=== PATIENT | female | born 1945 | race Caucasian/White ===

== ENCOUNTER → 2018-09-30 12:16 | Outpatient (CLI) | payer MEDICARE, OTHER, SELFPAY ==
--- NOTE | 2018-09-30 12:43 | CT_ITS ---
STUDY: CT ABDOMEN AND PELVIS WITH CONTRAST REASON FOR EXAM: Female, 73 years old. Abdominal pain and swelling RADIATION DOSAGE (If Supplied By Facility): CTDIvol = ( 17.63 ) mGy, DLP = ( 988.98 ) mGycm TECHNIQUE: Transaxial images were obtained from the dome of the diaphragm to the symphysis pubis without oral contrast. 100 IV/Oral Isovue 300 was administered. Sagittal and coronal images were reconstructed. Individualized dose optimization techniques were used for this CT. COMPARISON: None. FINDINGS: There are chronic interstitial fibrotic changes of the lung bases. The visualized portions of the heart are within normal limits. There is decreased attenuation of the liver consistent with steatosis. Gallbladder has an unusual appearance with most inferior aspect showing septations and peripheral calcifications. Recommend further evaluation with ultrasound. There are multiple benign calcified granulomata of the spleen. Normal pancreas. Normal bilateral adrenal glands. Normal right kidney. Normal left kidney. Normal visualized stomach. Normal small intestine. Retained stool noted throughout the colon. The appendix is visualized and appears normal. Appendix best seen on coronal recon image 70 There is diffuse atherosclerotic calcification of the abdominal aorta, without a demonstrated aneurysm. Normal inferior vena cava. Normal retroperitoneum. Normal urinary bladder. Uterus is still present, the endometrium cannot be accurately evaluated with CT. No suspicious cystic mass or free fluid. There are at least 4 ventral hernias, 3 contain bowel loops. However, there is no bowel wall thickening or induration of the associated fat to suggest inflammation or incarceration. There are diffuse degenerative changes of the visualized lumbar spine, and pelvis. Old healed inferior pubic rami fractures noted. CT/Abdomen/Pelvis WITH Contrast IMPRESSION: There are 4 ventral hernias, 3 contain bowel loops. There is no CT evidence of acute inflammation or bowel wall thickening to suspect incarceration. No associated ileus or obstruction noted. The distal gallbladder shows septations and peripheral calcifications. I'm unsure if the calcifications are within the wall of the gallbladder or due to gallstones. Recommend further evaluation with ultrasound. No pericholecystic fluid or ductal dilatation noted. Fatty liver Uterus is still present, the endometrium cannot be adequately evaluated with CT. Degenerative bony changes with old healed inferior pubic rami fractures Electronically Signed: Brock Miranda MD at 15:44 EDT , Service support ,
[2018-09-30 13:00] LABS: Creatinine, Serum 1.04 mg/dL (0.55-1.02); EST Glomerular Filtration Rate 55 mL/min (>60); Est Glom Filt Rate - Afr Amer 66 mL/min (>60)
[2018-09-30 15:25] LABS: CREATININE FINGERSTICK 0.9 mg/dL (0.55-1.02)
== END ==
PROVIDERS: Family Provider Student in an Organized Health Care Education/Training Program; PCP Student in an Organized Health Care Education/Training Program; Referring Provider Student in an Organized Health Care Education/Training Program; Visit Provider Student in an Organized Health Care Education/Training Program
DX: R19.00 Intra-abdominal and pelvic swelling, mass and lump, unspecified site (principal)
CPT/HCPCS: 36415; 74177; 82565; Q9967

== ENCOUNTER → 2018-10-30 08:00 | Outpatient (CLI) | payer MEDICARE, OTHER, SELFPAY ==
[2018-10-30 15:46] LABS: Hematocrit 41.3 % (37-47); Hemoglobin 13.3 g/dL (12.0-15.0); Mean Corp Hgb Conc 32.2 g/dL (32-36); Mean Corpuscular Hgb 29.8 pg (27.0-32.0); Mean Corpuscular Volume 92.6 fL (81-99); Mean Platelet Vol. 12.4 fl (6.2-12.0); Platelet Count 227 K/mm3 (150-450); RBC Distribution Width CV 13.7 % (11.6-14.6); RBC Distribution Width SD 46.4 fl (35.1-43.9); Red Blood Count 4.46 M/mm3 (4.2-5.4); White Blood Count 8.8 K/mm3 (4.4-11.0)
[2018-10-30 16:11] LABS: Anion Gap 3 (5-15); BUN 21 mg/dL (7-18); BUN/Creat Ratio 19.8 RATIO (10-20); Calcium,Total 9.4 mg/dL (8.5-10.1); Chloride 107 mmol/L (98-107); Creatinine, Serum 1.06 mg/dL (0.55-1.02); EST Glomerular Filtration Rate 54 mL/min (>60); Est Glom Filt Rate - Afr Amer 65 mL/min (>60); Glucose 259 mg/dL (74-106); Potassium 3.9 mmol/L (3.5-5.1); Sodium Level 139 mmol/L (136-145)
[2018-10-30 16:16] LABS: Hemoglobin A1c 8.5 % (4.2-6.3)
== END ==
PROVIDERS: Anesthesiology; Family Provider Student in an Organized Health Care Education/Training Program; PCP Student in an Organized Health Care Education/Training Program; Referring Provider Surgery; Visit Provider Surgery
DX: Z01.818 Encounter for other preprocedural examination (principal); K43.2 Incisional hernia without obstruction or gangrene; E11.9 Type 2 diabetes mellitus without complications; I10 Essential (primary) hypertension
CPT/HCPCS: 36415; 80048; 83036; 85027; 93005

== ENCOUNTER 2018-12-24 14:39 | Inpatient (IN) | payer MEDICARE, OTHER, SELFPAY ==
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
[2018-12-23] VITALS (15 sets, daily range): BP systolic 128–171; BP diastolic 7–104; PULSE 64–79; RESP 16–20; TEMP 36.1–36.9; O2SAT 90–98; BMI 27.2
[2018-12-23] MEDS: Lactated Ringers 1,000 ML 100 ML IV ×3 (07:17→21:27)
--- NOTE | 2018-12-23 07:30 | HERN_PTH ---
PATIENT: SHOAIB RAE LOC: MS3 U#:[id number] AGE/SX: 73/F ROOM: MS310 RE12/24/[address]: Dr. Pro Juarez MD : 1945 BED: 1 DIS: 12/25/2018 SPEC #: [id number] RECD: 12/23/18 12:17 STATUS: RADHA REQ #: [id number] SUNIL: 12/23/18 07:[address]: Pro Juarez DEPT: SURGICAL PATHOLOGY RECD BY: Sebastian Yan ENTERED: 12/23/18 13:34 SP TYPE: Hernia OTHR DR: Dr. Nakul Mcclellan, DO Tissues: HERNIA Procedures: Surgery Specimen Level II HEADER OPERATION: Incisional hernia repair PRE-OP DIAGNOSIS: Incisional hernia without obstruction or gangrene TISSUE SUBMITTED: Falciform ligament, hernia sac MICROSCOPIC DIAGNOSIS Falciform ligament, hernia sac, excision: Hernia sac with mild fibrosis. AM:owen 12/24/18 MICROSCOPIC DESCRIPTION Slides are reviewed. GROSS DESCRIPTION Received in fixative is one container labeled with the patient's name and designated falciform ligament, hernia sac. The specimen consists of multiple pieces of yellow adipose tissue that in aggregate measure 9 x 5.5 x 1.5 cm. No mass lesion is identified. Curriculum Manager sections are submitted in two cassettes. / SJ:owen 12/23/18 TC:5 [facility]: [id number]
[2018-12-23] MEDS: 0.9% Normal Saline (Pres. free 10 ML Vial (09:23)
[2018-12-23] MEDS: Bupivacaine 0.25% 30 ML Vial (09:25)
[2018-12-23] MEDS: BUPIVACAINE LIPOSOME/PF 20 ML VIAL OPERA.SITE (09:26)
--- NOTE | 2018-12-23 09:32 | OP.PCM_ITS ---
Report of Operation Date of Procedure: 12/23/18 Pre-Operative Diagnosis: incarcerated incisional hernia Post-Operative Diagnosis: incarcerated small bowel, larger bowel and omentum, extensive adhesions, incarcerated incisional hernia - total defect - 13x7 Surgery/Procedure Performed:: laparoscopic extensive lysis of adhesions, laparoscopic incarcerated incisional hernia repair with 25.[address] Hernia patch - Ref [id number], Lot [id number], exp - 03/08/2020 capital campaign fundraiser: Alison Arredondo Type of Anesthesia:: General Anesthesiologist: Nathan Stallings - ASA3 Specimen's removed: falciform and hernia sac Drains: none Estimated Blood Loss (mL): 100 Fluids Replaced: 900 Description of Procedure: The patient was brought to the operating suite. Sign in was performed verifying patient, site, procedure, position, and DVT prophylaxis with SCDs. Patient received 900 mg clindamycin due to penicillin allergy for antibiotic prophylaxis. Following induction of general anesthetic, the patient?s abdomen was prepped and draped in the usual fashion. Timeout was performed verifying patient, site, position. Local anesthetic was injected . A linear incision was made and dissection carried down at the level of the supraumbilical hernia defect. The hernia sac and the hernia sac was opened . The Grey trocar was inserted and the balloon insufflated.. 3- 5mm ports were placed in the far left lateral position There was very dense intra-abdominal adhesions of small bowel to the anterior abdominal wall. These were very carefully dissected sharply using laparoscopic Metzenbaum scissors. Cold dissection time took approximately 1 hour. As dissection continued and there were noted to be no multiple fascial defects in the midline to the right of midline holding omentum, small bowel and transverse colon adherent within the hernia sac. These items were very carefully dissected off the hernia sac and then dissected off the fascial defect margin . There were multiple adhesions intra-abdominally. . Once there was circumferential freeing of the small bowel and omentum , the hernia sac was dissected completely free from the subcutaneous fat down to the level of the fascial defect . Dissection of the hernia sac at the level the umbilicus and then excess surrounding preperitoneal fat was dissected to allow flat placement of the intra-abdominal mesh. The falciform ligament was also divided to prevent tenting. The hernia sac tissue was excised and sent to pathology. A 15.7 x 25.5 VentrioST mesh was placed intra-abdominally. A Prolene suture was placed through the superior aspect of the mesh brought up with a Granee needle to just the upper midline allowing good overlap between the edge of the mesh and the superior aspect of the defect. Prolene sutures were placed transfixing the fascia at 12 , 6 , 3 and 9:00 using a GraNee needle . The mesh was then tacked using both Pro-Tech and secure strap tackers around the outer rim of the mesh and then in multiple locations in the inner mesh Subcutaneous fat was closed with interrupted 3-0 Vicryl suture. Skin was closed with a running and inturrepted 4-0 Monocryl subcuticular sutures. Steri-Strips and bandages were applied. The patient was brought to recovery room in stable condition. Grafts/Implants Used: 25.[address] Hernia patch - Ref [id number], Lot [id number], exp - 12
[2018-12-23 11:11] LABS: Bedside Glucose 181 mg/dL (70-110)
[2018-12-23] MEDS: hydroCHLOROthiazide 25 MG Tablet PO (15:14)
[2018-12-23] MEDS: metFORMIN HCl 850 MG Tablet PO (17:17)
[2018-12-23] MEDS: oxyCODONE 5 MG Tablet PO (20:19)
[2018-12-23 21:36] LABS: Bedside Glucose 143 mg/dL (70-110)
[2018-12-23] MEDS: Loratadine 10 MG Tablet PO (23:16)
[2018-12-24 00:16] LABS: Bedside Glucose 171 mg/dL (70-110)
[2018-12-24] MEDS: oxyCODONE 5 MG Tablet PO ×6 (01:13→21:59)
[2018-12-24 02:45] VITALS: BP 176/81; PULSE 75; RESP 20; TEMP 37; O2SAT 95
[2018-12-24] MEDS: Insulin Lispro 100 UNIT/ML INSULN.PEN SC ×2 (06:36→12:23)
[2018-12-24 06:45] LABS: Bedside Glucose 163 mg/dL (70-110)
--- NOTE | 2018-12-24 06:56 | NURSING ---
Pulse ox was dropping into the upper 80's. Entered room and found pt sleeping. Awakened her and applied oxygen at 2L via n/c. Pulse ox now reading 93%.
[2018-12-24] MEDS: Lactated Ringers 1,000 ML 70 ML IV ×2 (07:07→21:46)
[2018-12-24 07:29] LABS: Absolute Lymphocyte Count 2.09 X10^3/uL (0.83-4.51); Absolute Neutrophil Count 6.6 X10^3/uL (2.0-7.7); Basophil# 0.06 X10^3/uL; Basophil% 0.6 % (0-1); Eosinophil# 0.14 X10^3/uL; Eosinophils% 1.4 % (0-5); Hematocrit 38.2 % (37-47); Hemoglobin 12.2 g/dL (12.0-15.0); Lymphocyte # 2.09 X10^3/ul (4.0); Lymphocyte % 21.4 % (19-41); Mean Corp Hgb Conc 31.9 g/dL (32-36); Mean Corpuscular Hgb 29.9 pg (27.0-32.0); Mean Corpuscular Volume 93.6 fL (81-99); Mean Platelet Vol. 12.8 fl (6.2-12.0); Monocyte# 0.85 X10^3/uL; Monocyte% 8.7 % (0-10); NRBC Flagged by Analyzer 0 % (0-5); Neutrophil # 6.58 X10^3/uL (2.7-7.7); Neutrophil % 67.4 % (47-70); Platelet Count 198 K/mm3 (150-450); RBC Distribution Width CV 13.8 % (11.6-14.6); RBC Distribution Width SD 46.7 fl (35.1-43.9); Red Blood Count 4.08 M/mm3 (4.2-5.4); White Blood Count 9.8 K/mm3 (4.4-11.0)
[2018-12-24 07:54] LABS: Anion Gap 9 (5-15); BUN 13 mg/dL (7-18); Calcium,Total 8.6 mg/dL (8.5-10.1); Chloride 104 mmol/L (98-107); Creatinine, Serum 0.81 mg/dL (0.55-1.02); EST Glomerular Filtration Rate 73 mL/min (>60); Est Glom Filt Rate - Afr Amer 88 mL/min (>60); Estimated Creatinine Clearance 56.18 ml/min; Glucose 155 mg/dL (74-106); Potassium 3.4 mmol/L (3.5-5.1); Sodium Level 140 mmol/L (136-145)
[2018-12-24 08:44] VITALS: BP 170/79; PULSE 73; RESP 18; TEMP 36.9; O2SAT 98
[2018-12-24] MEDS: Aspirin E.C. 81 MG Tablet PO (08:49)
[2018-12-24] MEDS: metFORMIN HCl 850 MG Tablet PO ×3 (08:49→17:31)
[2018-12-24] MEDS: Glimepiride 4 MG Tablet 2 MG PO (08:49)
[2018-12-24] MEDS: LINAGLIPTIN 5 MG TABLET PO (08:50)
[2018-12-24] MEDS: hydroCHLOROthiazide 25 MG Tablet PO (08:50)
[2018-12-24] MEDS: Allopurinol 300 MG Tablet PO (08:50)
[2018-12-24 08:51] VITALS: BP 170/79; PULSE 73
[2018-12-24] MEDS: Metoprolol(XL)Succ 25 MG Tablet PO (08:51)
[2018-12-24] MEDS: Lisinopril 40 MG Tablet PO (08:51)
[2018-12-24] MEDS: Loratadine 10 MG Tablet PO (08:53)
[2018-12-24 11:31] LABS: Bedside Glucose 160 mg/dL (70-110)
--- NOTE | 2018-12-24 12:46 | NURSING ---
pt resting quietly in chair @ bs, eyes closed, resp easy
[2018-12-24 13:00] VITALS: BP 149/62; PULSE 70; RESP 18; TEMP 36.5; O2SAT 95
--- NOTE | 2018-12-24 14:30 | PCM.PN.SRG ---
Subjective: incisional pain, passed flatus yesterday, hungry - Physical Exam General: Alert, Oriented x3, Cooperative Lungs: Clear to auscultation, Normal air movement Cardiovascular: Regular rate, No murmurs Abdomen: Bowel Sounds Present, Soft, Hypoactive Bowel Sounds, Tender - along incisions Vital Signs Temp Pulse Resp BP Pulse Ox 97.7 F L 70 18 149/62 H 95 12/24/18 13:00 12/24/18 13:00 12/24/18 13:00 12/24/18 13:00 12/24/18 13:00 Oxygen Flow Rate (L/min) 2 Oxygen Delivery Method Room Air Weight: 76.5 kg Body Mass Index (BMI) 27.2 Intake and Output for Last 24 Hours 12/22/18 12/23/18 12/24/18 23:59 23:59 23:59 Intake Total 1922.67 / 2122.67 1607.17 / 1607.17 Output Total 1600 / 1600 Balance 1922.67 / 1922.67 7.17 / 7.17 Laboratory Tests Past 24 Hrs 12/24/18 12/24/18 06:00 06:00 WBC 9.8 RBC 4.08 L Hgb 12.2 Hct 38.2 MCV 93.6 MCH 29.9 MCHC 31.9 L RDW Std Deviation 46.7 H RDW Coeff of Rusty 13.8 Plt Count 198 MPV 12.8 H Immature Gran % (Auto) 0.500 Neut % (Auto) 67.4 Lymph % (Auto) 21.4 [place] % (Auto) 8.7 Eos % (Auto) 1.4 Baso % (Auto) 0.6 Absolute Neuts (auto) 6.6 Absolute Lymphs (auto) 2.09 Nucleated RBC % 0 Sodium 140 Potassium 3.4 L Chloride 104 Carbon Dioxide 27.0 Anion Gap 9 BUN 13 Creatinine 0.81 Estim Creat Clear Calc 56.18 Est GFR (MDRD) Af Amer 88 Est GFR (MDRD) Non-Af 73 BUN/Creatinine Ratio 16.0 Glucose 155 H Calcium 8.6 POC Glucose 12/24/18 12/24/18 12/23/18 11:26 06:33 21:29 POC Glucose 160 H 163 H 143 H 12/23/18 17:16 POC Glucose 171 H Medical Necessity - Tobacco Use Smoking Status: Former smoker Tobacco Use: Non-smoker Assessment/Plan POD # 1 status post laparoscopic lysis of adhesions, laparoscopic multi-pocketed incisional hernia repair with 25 x 15 cm Ventrio mesh. Patient tolerating liquid diet and wishes to advance diet-Will advance to regular diet with cautions to watch for abdominal distention. Encourage patient to get out of bed and ambulate. Also encouraged deep breathing sessions and spirometry use. Patient still having significant incisional pain as expected based on size of hernia repair. We'll continue parenteral pain medications with transition
[2018-12-24 16:25] LABS: Bedside Glucose 139 mg/dL (70-110)
[2018-12-24 19:00] VITALS: BP 148/68; PULSE 72; RESP 18; TEMP 37.3; O2SAT 95
[2018-12-24 22:06] LABS: Bedside Glucose 103 mg/dL (70-110)
[2018-12-25 01:55] VITALS: BP 170/71; PULSE 86; RESP 18; TEMP 36.9; O2SAT 93
[2018-12-25] MEDS: oxyCODONE 5 MG Tablet PO ×3 (02:05→12:09)
--- NOTE | 2018-12-25 06:35 | DCINST_ITS ---
Discharge Diet: Light diet - advance as tolerated Discharge Activity: Return to Normal Activity, May Drive - when you are no longer taking narcotic pain medications., May Shower - with the bandage in place 1-2 days after surgery. Lifting Restrictions: 20 pounds for 8 weeks. Additional Activity Instructions:: Climbing stairs is fine, walking is encouraged. Sitting in bed may be uncomfortable. Sitting up using your lateral muscles (sitting up sideways) is usually more comfortable. Do not drive, work heavy equipment of sign legal documents for 24 hours. If your hernia repair was an ingunial repair, you may have scrotal swelling, an ice pack and/or athletic support can provide more comfort. Pain medications may cause nausea, you should typically eat light foods as you take your pain medications. Pain medications may also cause constipation. If you have difficulty with this, discuss with your doctor. Call your doctor if your incision/area has: Continuous Slow Oozing, Sudden Increased Bleeding, Increased Pain/ Swelling, Increased Redness, Foul Smelling Discharge Call your doctor if you observe: Fever of 101 or Higher Suture Line Care: Avoid Pulling/Pushing, Avoid Pinching/Bending Additional Dressing/Incision Instructions:: Leave the operative bandage on for 2-3 days. When you remove the bandage, leave the steri-strips on place until your follow up appointment or they fall off. Allergies/Adverse Reactions: Allergies Penicillins [PCN] Allergy (Verified 12/23/18 06:44) Rash environmental Allergy (Uncoded 12/20/18 08:22) Other Medications to take at Discharge Allopurinol [Zyloprim] 300 mg PO DAILY 10/28/18 Aspirin [Aspir 81] 81 mg PO DAILY 10/28/18 Cetirizine HCl 10 mg PO DAILY 10/28/18 Doxycycline 50 mg PO BID 10/28/18 Glimepiride [Amaryl] 2 mg PO DAILY 10/28/18 Hydrochlorothiazide [Hctz] 25 mg PO DAILY 10/28/18 Metoprolol Succinate 25 mg PO DAILY 10/28/18 Multivit-Min/FA/Lycopen/Lutein [Centrum Silver Tablet] 1 ea PO DAILY 10/28/18 Quinapril HCl [Accupril] 40 mg PO DAILY 10/28/18 Simvastatin [Zocor] 20 mg PO QHS 10/28/18 Sitagliptin Phosphate [Januvia] 100 mg PO DAILY 10/28/18 metFORMIN HCl [Glucophage] 850 mg PO TIDCM 10/28/18 Glucosa Pizarro 2Kcl/Chondroitin Pizarro [Glucosamine-Chondroitin Cap] 1 ea PO BID 12/20/18 Insulin Glargine,Hum.rec.anlog [Basaglar Kwikpen U-100] 8 unit SUBCUT QHS 12/20/18 Ibuprofen [Motrin] 400 mg PO Q4H PRN PRN tablet 12/25/18 Oxycodone [Oxyir] 5 - 10 mg PO Q4H PRN PRN 7 Days #25 tab 12/25/18 The following prescriptions were given: Oxycodone [Oxyir] 5 - 10 mg PO Q4H PRN PRN 7 Days #25 tab PRN Reason: Pain Score 6-10/10 Prescription Printed Primary Care Physician: Nakul Mcclellan DO [Primary Care Provider] - Test Results: Test results from this visit will be discussed in further detail at your follow- up appointment, if applicable. Please Follow Up With: Pro Juarez MD - [phone] When: Plan to have a follow up appointment in 7 days. Call to schedule.
[2018-12-25] MEDS: Insulin Lispro 100 UNIT/ML INSULN.PEN SC (06:58)
[2018-12-25 07:06] LABS: Bedside Glucose 158 mg/dL (70-110)
[2018-12-25 07:35] VITALS: O2SAT 93
[2018-12-25 07:46] VITALS: BP 170/68; PULSE 80; RESP 16; TEMP 37.1; O2SAT 92
[2018-12-25 08:42] VITALS: PULSE 80
[2018-12-25] MEDS: Metoprolol(XL)Succ 25 MG Tablet PO (08:42)
[2018-12-25] MEDS: metFORMIN HCl 850 MG Tablet PO (08:42)
[2018-12-25] MEDS: Allopurinol 300 MG Tablet PO (08:42)
[2018-12-25] MEDS: Aspirin E.C. 81 MG Tablet PO (08:43)
[2018-12-25] MEDS: LINAGLIPTIN 5 MG TABLET PO (08:44)
[2018-12-25] MEDS: hydroCHLOROthiazide 25 MG Tablet PO (08:44)
[2018-12-25] MEDS: Loratadine 10 MG Tablet PO (08:44)
[2018-12-25] MEDS: Lisinopril 40 MG Tablet PO (08:45)
[2018-12-25] MEDS: Glimepiride 4 MG Tablet 2 MG PO (08:46)
[2018-12-25 11:22] VITALS: BP 175/84; PULSE 78; RESP 18; TEMP 36.7; O2SAT 95
--- NOTE | 2018-12-25 11:40 | CASEMGMT ---
RN CM Face to Face with patient for initial transition planning/care coordination assessment. RN CM introduced self and role at [facility]. Patient sitting in chair, alert and oriented. Patient willing to participate in assessment and is able to answer all questions appropriately. Care providers, pharmacy, and demographics verified. Patient wishes to discharge home, denies need for home health at this time. Patient states she has no further needs or concerns at this time. CM to follow for discharge planning needs that may arise. PCP: Kacey Specialists: CARMEN Hale Preferred Pharmacy: [facility] Insurance: [facility] Prescription Benefit: yes Living Will/HPOA: yes, [place] HPOA LNOK: Living Arrangements: Patient lives with in 1 story home with 2 steps to enter the home. Patient was independent prior to surgery Transportation: self/ DME/HHC: Patient states she has shower chair, raised toilet, grab bars, and walker at home. Disposition Plan: Patient to discharge home with family support and follow-up plans in place. Janett BAUGH, RN, CM
--- NOTE | 2018-12-25 18:28 | PCM.DC.SUM ---
Discharge Date and Diagnosis Date of Admission: 12/23/18 Date of Discharge: 12/25/18 - Primary Discharge Diagnosis incisional hernia Hospital Course and Treatment Operations: herniorrhaphy Summary of Care Provided: The patient is a 73 year old F with a history of a trauma laparotomy in the distant past. She presented for a laparoscopic lysis of adhesions and laparoscopic incisional hernia repair with a [id number] Ventrio mesh placement. She was ready for discharge on POD # 2 tolerating oral pain medications and a diet - Physical Exam Vital Signs Temp Pulse Resp BP Pulse Ox 98.0 F 78 18 175/84 H 95 12/25/18 11:22 12/25/18 11:22 12/25/18 11:22 12/25/18 11:22 12/25/18 11:22 Oxygen Flow Rate (L/min) 2 Oxygen Delivery Method Room Air Weight: 76.5 kg Body Mass Index (BMI) 27.2 Intake and Output for Last 24 Hours 12/23/18 12/24/18 12/25/18 23:59 23:59 23:59 Intake Total 1922.67 / 2122.67 3087.17 / 3327.17 280 / 280 Output Total 2200 / 2850 950 / 950 Balance 1922.67 / 1922.67 887.17 / 477.17 -670 / -670 POC Glucose 12/25/18 12/24/18 06:42 21:55 POC Glucose 158 H 103 Discharge Diet: Light diet - advance as tolerated Discharge Activity: Return to Normal Activity, May Drive - when you are no longer taking narcotic pain medications., May Shower - with the bandage in place 1-2 days after surgery. Additional Activity Instructions:: Climbing stairs is fine, walking is encouraged. Sitting in bed may be uncomfortable. Sitting up using your lateral muscles (sitting up sideways) is usually more comfortable. Do not drive, work heavy equipment of sign legal documents for 24 hours. If your hernia repair was an ingunial repair, you may have scrotal swelling, an ice pack and/or athletic support can provide more comfort. Pain medications may cause nausea, you should typically eat light foods as you take your pain medications. Pain medications may also cause constipation. If you have difficulty with this, discuss with your doctor. Call your doctor if your incision/area has: Continuous Slow Oozing, Sudden Increased Bleeding, Increased Pain/ Swelling, Increased Redness, Foul Smelling Discharge Call your doctor if you observe: Fever of 101 or Higher Suture Line Care: Avoid Pulling/Pushing, Avoid Pinching/Bending Additional Dressing/Incision Instructions:: Leave the operative bandage on for 2-3 days. When you remove the bandage, leave the steri-strips on place until your follow up appointment or they fall off. Home Medications: Medications to take at Discharge Allopurinol [Zyloprim] 300 mg PO DAILY 10/28/18 Aspirin [Aspir 81] 81 mg PO DAILY 10/28/18 Cetirizine HCl 10 mg PO DAILY 10/28/18 Doxycycline 50 mg PO BID 10/28/18 Glimepiride [Amaryl] 2 mg PO DAILY 10/28/18 Hydrochlorothiazide [Hctz] 25 mg PO DAILY 10/28/18 Metoprolol Succinate 25 mg PO DAILY 10/28/18 Multivit-Min/FA/Lycopen/Lutein [Centrum Silver Tablet] 1 ea PO DAILY 10/28/18 Quinapril HCl [Accupril] 40 mg PO DAILY 10/28/18 Simvastatin [Zocor] 20 mg PO QHS 10/28/18 Sitagliptin Phosphate [Januvia] 100 mg PO DAILY 10/28/18 metFORMIN HCl [Glucophage] 850 mg PO TIDCM 10/28/18 Glucosa Pizarro 2Kcl/Chondroitin Pizarro [Glucosamine-Chondroitin Cap] 1 ea PO BID 12/20/18 Insulin Glargine,Hum.rec.anlog [Basaglar Kwikpen U-100] 8 unit SUBCUT QHS 12/20/18 Ibuprofen [Motrin] 400 mg PO Q4H PRN PRN tab 12/25/18 Oxycodone [Oxyir] 5 - 10 mg PO Q4H PRN PRN 7 Days #25 tab 12/25/18 Following Prescrptions Were Given to Patient: Oxycodone [Oxyir] 5 - 10 mg PO Q4H PRN PRN 7 Days #25 tab PRN Reason: Pain Score 6-10/10 Prescription Printed Primary Care Physician: Nakul Mcclellan DO [Primary Care Provider] - Please Follow Up With: Pro Juarez MD - [phone] When: Plan to have a follow up appointment in 7 days. Call to schedule. Medical Necessity - Tobacco Use Smoking Status: Former smoker Tobacco Use: Non-smoker Meaningful Use Info Meaningful Use Diagnoses (Choose all that apply): None applicable
== END 2018-12-25 12:20 | disposition home or self-care (01) | DRG 337 ==
LOC: SDC 14:45 → MS3 14:45
PROVIDERS: Admitting Provider Surgery; Family Provider Student in an Organized Health Care Education/Training Program; PCP Student in an Organized Health Care Education/Training Program; Referring Provider Surgery; Visit Provider Surgery
PROC: 0WQF4ZZ Repair Abdominal Wall, Percutaneous Endoscopic Approach (ICD-10-PCS; principal; 2018-12-23 07:10)
DX: K43.0 Incisional hernia with obstruction, without gangrene (principal); K66.0 Peritoneal adhesions (postprocedural) (postinfection); E11.9 Type 2 diabetes mellitus without complications; I10 Essential (primary) hypertension; E78.00 Pure hypercholesterolemia, unspecified; M10.9 Gout, unspecified; G47.33 Obstructive sleep apnea (adult) (pediatric); Z79.82 Long term (current) use of aspirin; Z79.4 Long term (current) use of insulin; Z79.899 Other long term (current) drug therapy; Z78.0 Asymptomatic menopausal state; Z88.0 Allergy status to penicillin; Z87.891 Personal history of nicotine dependence
CPT/HCPCS: 36415; 80048; 82962; 85025; 88302; J7120; C1781; J2405; J3490

== ENCOUNTER 2021-01-27 12:13 | Day surgery (SDC) | payer MEDICARE, OTHER, SELFPAY ==
[2021-01-27] VITALS (9 sets, daily range): BP systolic 150–188; BP diastolic 59–99; PULSE 59–74; RESP 16–18; TEMP 36.2–36.7; O2SAT 91–97; BMI 27.3
[2021-01-27] MEDS: Lactated Ringers 1,000 ML 15 ML IV ×2 (14:17→18:30)
--- NOTE | 2021-01-27 14:18 | EKG12_ITS ---
Test Reason : PRE-OP Blood Pressure : / mmHG Vent. Rate : 056 BPM Atrial Rate : 056 BPM P-R Int : 176 ms QRS Dur : 084 ms QT Int : 424 ms P-R-T Axes : 051 -31 012 degrees QTc Int : 409 ms Sinus bradycardia Left axis deviation Abnormal ECG When compared with ECG of 30-OCT-2018 15:31, Vent. rate has decreased BY 27 BPM Nonspecific T wave abnormality no longer evident in Lateral leads Confirmed by MARIYA DONAHUE, MICHAEL ([id number]), food expeditor FILIPE LÓPEZ ([id number]) on 02/01/2021 1:29:17 PM Referred By: Herbert Murphy Confirmed By:MICHAEL MERAZ MD
[2021-01-27 14:21] LABS: Absolute Lymphocyte Count 2.14 X10^3/uL (0.83-4.51); Absolute Neutrophil Count 5.4 X10^3/uL (2.0-7.7); Basophil# 0.06 X10^3/uL; Basophil% 0.7 % (0-1); Eosinophils% 4.5 % (0-5); Hematocrit 40.4 % (37-47); Hemoglobin 12.9 g/dL (12.0-15.0); Lymphocyte # 2.14 X10^3/ul (0.83-4.51); Mean Corp Hgb Conc 31.9 g/dL (32-36); Mean Corpuscular Hgb 30.3 pg (27.0-32.0); Mean Corpuscular Volume 94.8 fL (81-99); Mean Platelet Vol. 12.6 fl (6.2-12.0); Monocyte% 10.1 % (0-10); NRBC Flagged by Analyzer 0 % (0-5); Neutrophil # 5.37 X10^3/uL (2.7-7.7); Platelet Count 250 K/mm3 (150-450); RBC Distribution Width CV 14.1 % (11.6-14.6); RBC Distribution Width SD 48.6 fl (35.1-43.9); Red Blood Count 4.26 M/mm3 (4.2-5.4); White Blood Count 8.9 K/mm3 (4.4-11.0)
[2021-01-27 14:31] LABS: Bedside Glucose 156 mg/dL (70-110)
[2021-01-27 14:42] LABS: Hemoglobin A1c 7.7 % (3.8-5.6)
[2021-01-27 14:49] LABS: Anion Gap 7 (5-15); BUN 31 mg/dL (7-18); BUN/Creat Ratio 22.5 RATIO (10-20); Calcium,Total 9.6 mg/dL (8.5-10.1); Chloride 104 mmol/L (98-107); Creatinine, Serum 1.38 mg/dL (0.55-1.02); EST Glomerular Filtration Rate 39 mL/min (>60); Est Glom Filt Rate - Afr Amer 48 mL/min (>60); Estimated Creatinine Clearance 31.96 ml/min; Glucose 154 mg/dL (74-106); Potassium 3.3 mmol/L (3.5-5.1); Sodium Level 140 mmol/L (136-145)
--- NOTE | 2021-01-27 15:00 | RAD_ITS ---
STUDY: INTRAOPERATIVE FLUOROSCOPY TECHNIQUE: The examination was performed with referring physician in attendance. Under fluoroscopic observation, fluoroscopic images were obtained. Radiologist was not present for the study. Radiologist did not perform the procedure. This dictation is for documentation of the radiation dosage only. There is no interpretation of the images. TOTAL NUMBER OF IMAGES: 1 COMPARISON: None RADIATION DOSE: .86 mGy FLUOROSCOPY TIME: 44.2 seconds REASON FOR EXAM: POST OP ORIF RIGHT WRIST Female, 75 years old. FINDINGS: There is a metal sideplate transfixing the distal radial fracture. Please stabilized along the third metacarpal bone. There are cortical screws holding the plate in place. RAD/Wrist min 3 Views IMPRESSION: Fluoroscopic assistance images were obtained. Dictation for documentation purposes only. Pending Final Proof Editing
--- NOTE | 2021-01-27 16:51 | PCM.HP.STD ---
HPI - General HPI Narrative SHOAIB RAE, is a 75 F who presented to the office of my partner Dr. Monroe Gonzalez earlier this morning. She sustained a dog bite from a family dog in [place] to her right wrist. She sustained a distal radius fracture which was splinted in the emergency department in [place], given antibiotics for 4 days and told to follow-up. Dr. Gonzalez obtained x-rays revealed an unstable distal radius fracture as well as evidence of dog bite without evidence of early infection. This is a open fracture by definition. Given the delayed presentation, he contacted me as I was the on-call physician to expedite her surgical intervention. I recommended we perform an irrigation and debridement of the bite wounds, external fixation versus percutaneous pinning of her distal radius. She was sent to [facility]. I saw the patient in the preoperative holding area. All questions were answered to the patient's satisfaction regarding the surgery. I thoroughly examined the patient prior to the surgery. [facility] Medical History (Updated 01/27/21 @ 16:[address] Herbert Murphy, ) Alcohol use Arthritis Diabetes Easy bruising Former smoker Gout High cholesterol Hypertension Post-menopausal Shortness of breath on exertion Wears glasses Home Medications allopurinol 300 mg PO DAILY 10/28/18 [History Last Taken Unknown] aspirin 81 mg PO DAILY 10/28/18 [History Last Taken Unknown] cetirizine 10 mg PO DAILY 10/28/18 [History Last Taken Unknown] doxycycline monohydrate 50 mg PO BID 10/28/18 [History Last Taken Unknown] glimepiride 2 mg PO DAILY 10/28/18 [History Last Taken Unknown] hydrochlorothiazide 25 mg PO DAILY 10/28/18 [History Last Taken Unknown] metformin 850 mg PO DAILY 10/28/18 [History Last Taken Unknown] metoprolol succinate 25 mg PO DAILY 10/28/18 [History Last Taken 12/23/18] okgqoqjl-fkk-BA-lycopen-lutein 1 ea PO DAILY 10/28/18 [History Last Taken Unknown] quinapril 40 mg PO DAILY 10/28/18 [History Last Taken 12/23/18] simvastatin 20 mg PO QHS 10/28/18 [History Last Taken Unknown] sitagliptin [Januvia] 100 mg PO DAILY 10/28/18 [History Last Taken Unknown] glucosamine [place] 2KCl-chondroit 1 ea PO BID 12/20/18 [History Last Taken Unknown] insulin glargine 12 unit SUBCUT QHS 12/20/18 [History Last Taken Unknown] ibuprofen 400 mg PO Q4H PRN PRN tab 12/25/18 [Rx Last Taken Unknown] Allergy/AdvReac Type Severity Reaction Status Date / Time Penicillins [PCN] Allergy Rash Verified 01/27/21 13:51 environmental Allergy Other Uncoded 01/27/21 13:51 Surgical History (Updated 01/27/21 @ 14:02 by Kami Go) History of colonoscopy History of hernia repair Social History Smoking Status: Former smoker ROS ROS Narrative 10 point review of systems obtained, negative unless otherwise noted in HPI. Vital Signs Vital Signs Vital Signs: 01/27/21 14:10 01/27/21 14:14 Temperature 98.0 F Temperature Source Temporal Pulse Rate 59 L Respiratory Rate 18 Respiratory Pattern Normal Blood Pressure 164/72 H Blood Pressure Mean 102 Blood Pressure Source Monitor Blood Pressure Position Supine Blood Pressure Location Left Arm Pulse Ox 97 Oxygen Delivery Method Room Air Weight Weight: 169 lb 12.095 oz Body Mass Index (BMI) 27.3 Physical Exam Narrative General -A&Ox3, NAD, appears stated age. Vital signs stable, afebrile. Respiratory -normal work of breathing, no intercostal retractions. CV -pulses regular, brisk capillary refill ?4 limbs. Abdomen-soft, nontender, nondistended. No guarding, rigidity, rebound tenderness. Musculoskeletal/neurologic-right upper extremity-Short arm splint was in place and removed. Small puncture wounds consistent with bite vaca noted on the dorsal aspect of the radiocarpal joint, ulnar hand, and metadiaphyseal junction region of the dorsal radius. There is also a puncture wound within the wrist crease. No purulence was able to be expressed. Profound pitting edema is noted in the hand. Cardinal motions of the right hand are intact. Brisk capillary refill in the digits with radial pulse 2+. X-rays reviewed from our office in 01/27/2021 reveals a comminuted extra-articular fracture of the metadiaphyseal junction of the distal radius without obvious evidence of ulnar fracture. There is volar translation of the distal segment. Results Lab / Micro Data Result Diagrams: 01/27/21 14:10 01/27/21 14:30 Labs: Laboratory Results - last 24 hr 01/27/21 13:56: POC Glucose 156 H 01/27/21 14:10: WBC 8.9, RBC 4.26, Hgb 12.9, Hct 40.4, MCV 94.8, MCH 30.3, MCHC 31.9 L, RDW Std Deviation 48.6 H, RDW Coeff of Rusty 14.1, Plt Count 250, MPV 12.6 H, Immature Gran % (Auto) 0.700, Neut % (Auto) 60.0, Lymph % (Auto) 24.0, [place] % (Auto) 10.1 H, Eos % (Auto) 4.5, Baso % (Auto) 0.7, Absolute Neuts (auto) 5.4, Absolute Lymphs (auto) 2.14, Nucleated RBC % 0 01/27/21 14:10: Sodium Cancelled, Potassium Cancelled, Chloride Cancelled, Carbon Dioxide Cancelled, Anion Gap Cancelled, BUN Cancelled, Creatinine Cancelled, Estim Creat Clear Calc Cancelled, Est GFR (MDRD) Af Amer Cancelled, Est GFR (MDRD) Non-Af Cancelled, BUN/Creatinine Ratio Cancelled, Glucose Cancelled, Calcium Cancelled 01/27/21 14:10: Hemoglobin A1c 7.7 H 01/27/21 14:30: Sodium 140, Potassium 3.3 L, Chloride 104, Carbon Dioxide 29.0, Anion Gap 7, BUN 31 H, Creatinine 1.38 H, Estim Creat Clear Calc 31.96, Est GFR (MDRD) Af Amer 48 L, Est GFR (MDRD) Non-Af 39 L, BUN/Creatinine Ratio 22.5 H, Glucose 154 H, Calcium 9.6 Assessment & Plan Assessment/Plan (1) Open fracture of right radius: PLAN: Patient sustained a grade 1 open fracture of her right distal radius secondary to dog bite. Recommending surgical invention form of irrigation debridement and application of external fixator right distal radius. The risk, benefits alternatives procedure were reviewed with the patient at length she read to proceed. All questions answered to patient satisfaction. Continue antibiotics in the postoperative period. Further recommendations pending surgery. (2) Dog bite of forearm:
[2021-01-27] MEDS: Cefazolin 2 GM in 0.9% Normal Saline 100 ML IV (17:06)
--- NOTE | 2021-01-27 19:08 | PCM.DC ---
Discharge Instructions Follow Up Care Test Results: Test results from this visit will be discussed in further detail at your follow-up appointment, if applicable. Discharge Plan Admission Attending Provider: Herbert Murphy Primary Care Provider: Nakul Mcclellan Instructions Additional Instructions / Restrictions: Maintain splint until follow-up in 1 week Elevate, ice Right hand/wrist wiggle fingers as tolerated Nonweightbearing right hand Discharge Orders/Prescriptions Prescriptions: Continued cetirizine 10 MG tablet 10 mg PO DAILY RF: 0 metformin 850 MG tablet 850 mg PO DAILY RF: 0 aspirin 81 MG tablet,delayed release (DR/EC) 81 mg PO DAILY RF: 0 quinapril 40 MG tablet 40 mg PO DAILY RF: 0 doxycycline monohydrate 100 MG capsule 50 mg PO BID RF: 0 simvastatin 20 MG tablet 20 mg PO QHS RF: 0 glimepiride 4 MG tablet 2 mg PO DAILY RF: 0 allopurinol 300 MG tablet 300 mg PO DAILY RF: 0 hydrochlorothiazide 25 MG tablet 25 mg PO DAILY RF: 0 metoprolol succinate 25 MG tablet extended release 24 hr 25 mg PO DAILY RF: 0 gtnfkadx-yvr-BI-lycopen-lutein 1 EACH tablet 1 ea PO DAILY RF: 0 Januvia 100 MG tablet 100 mg PO DAILY RF: 0 insulin glargine 100 UNIT/ML insulin pen 12 unit subcut QHS RF: 0 glucosamine livingston 2KCl-chondroit 1 EACH capsule 1 ea PO BID RF: 0 ibuprofen 400 MG tablet 400 mg PO Q4H PRN PRN (Reason: Pain Score 1-5/10) RF: 0 Referrals / Follow Up: Nakul Mcclellan DO [Primary Care Provider] - Herbert Murphy DO [STAFF PHYSICIAN] - In 1 Week Disposition Disposition (needs filled in before D/C Order can be placed): Home, Self Care
--- NOTE | 2021-01-27 19:33 | PCM.OPRPT ---
Problems Associated Problem List Diagnoses (1) Dog bite of forearm: Report of Operation Date of Procedure: 01/27/21 Description of Surgical Findings:: Preoperative diagnosis: 1. Dog bite right wrist 2. Open fracture right distal radius Postoperative diagnosis: 1. Dog bite right wrist and hand 2. Closed fracture extra-articular right distal radius 3. Intraoperative radial shaft fracture Primary Surgeon: Herbert Murphy DO Anesthesiologist: Dr. Baca Instructional Technologist: None EBL: 50 cc Urine output: None IV fluids: Per anesthesia record Implants: Synthes 14 hole LCP plate 5 hole one third tubular plate Complications: Intraoperative radial shaft fracture sustained while final tightening of the wrist spanning external fixator Preoperative indications: SHOAIB RAE, is a 75 F who presented to the office of my partner Dr. Monroe Gonzalez earlier this morning. She sustained a dog bite from a family dog in [place] to her right wrist on 01/23/21. She sustained a distal radius fracture which was splinted in the emergency department in [place], given antibiotics for 4 days and told to follow-up. Dr. Gonzalez obtained x-rays revealed an unstable distal radius fracture as well as evidence of dog bite without evidence of early infection. This is a open fracture by definition. Given the delayed presentation, he contacted me as I was the on-call physician to expedite her surgical intervention. I recommended we perform an irrigation and debridement of the bite wounds, external fixation versus percutaneous pinning of her distal radius. She was sent to [facility]. I saw the patient in the preoperative holding area. All questions were answered to the patient's satisfaction regarding the surgery. The risks, benefits, alternatives to procedure were reviewed with the patient at length. She agreed to proceed. Risks include but were not limited to bleeding, infection, loss of life or limb, failure of orthopedic hardware, need for additional surgery, neurovascular injury, DVT or PE, risk of anesthesia, persistent pain. Patient expressed understanding of these risks. I thoroughly examined the patient prior to the surgery. Description of procedure: Patient was then applied the preoperative holding area by name, medical record number, date of . The operative extremity was marked. All questions to the patient's satisfaction. An axillary block was administered by Dr. Cartagena prior to the procedure. At time of her procedure, patient brought to the operative suite and positioned supine a standard operating table. General anesthesia was induced and laryngeal mask airway placed. All bony prominences were well-padded. A hand table attached to patient's right side. We spun the bed 90 degrees. We then prepped and draped the right hand and wrist in a normal, sterile orthopedic fashion with Betadine wet prep. We performed a timeout with all parties in attendance in agreement with the side, site, operation be performed. No concerns were voiced and we elected to proceed. 2 g Ancef was administered prior to incision by anesthesia staff. I first identified 4 separate bite vaca. I brought in fluoroscopy to confirm intra-articular placement of a 22-gauge needle and 5 cc normal saline was injected in the wrist without evidence of leaking out the wounds. Fluid was then reaspirated from the wrist. We then opened all 4 lacerations by simply spreading the skin. Fascia was closely inspected and appeared to be intact in all the wounds. There is no evidence of wrist arthrotomy. I copiously irrigated all the wounds with 3 L total normal saline. I then turned my attention to the fracture. I planned a standard dorsal external fixator. Identified the bare area of the distal third of the radial shaft. Skin was sharply incised with a 15 blade scalpel. Incision was approximately 4 cm in length. I dissected through the subcutaneous tissues bluntly down to the level of the periosteum. I then drilled bicortically for the [place] Otto 5 mm pins. Appropriately sized pins were then placed and tightened by hand. I then turned my attention to the second metacarpal. I made 2 stab incisions overlying the metacarpal shaft. I drilled bicortically with 3 mm - 5 mm taper pins in each incision respectively. Fluoroscopic images were obtained and demonstrate appropriate placement and depth of the pins in both the radius and metacarpal. I performed a closed reduction maneuver. I began constructing my frame. Appropriate reduction was obtained. I began provisionally tightening the frame. While I was tightening the proximal clamp, and audible cracking sound was noted. We brought in fluoroscopy to confirm that a radial shaft fracture had occurred around the proximalmost pin of the radial fixation of the external fixator. I remove the external fixator pins. We selected a LCP plate from [employer] small frag set to perform a dorsal joint spanning bridge plate for treatment of the distal radius fracture as well as the iatrogenic radial shaft fracture. I first placed a 3.5 mm lag screw across the fracture site which was oblique in nature. This achieved excellent fixation and anatomic reduction. We then placed 2 cortical screws both proximal to the fracture. To ensure adequate fixation the radius, I selected a 5 hole one third tubular plate to place on the radial aspect of the radius. We achieved 4 bicortical screws proximal to the iatrogenic radial shaft fracture. I then turned my attention to the distal radius fracture and metacarpal. Due to the size of the metacarpal pins in the second metacarpal, we had to utilize the third metacarpal for the dorsal spanning plate. I drilled for 2 bicortical 3.5 mm cortex screws after applying a traction force through the distal radius to maintain the distal radius fracture reduction. Final fluoroscopic images were obtained after hardware was placed and secured. Reduction appeared anatomic and appropriate. Hardware appeared to be appropriately sized. We again copiously irrigated all the wounds. Metacarpal and radial shaft approaches were closed with 3-0 Vicryl suture buried in the dermal layer and skin reapproximated with running 4-0 nylon suture. A single 4-0 nylon simple suture was placed in each of the dog bite lacerations. Xeroform was placed over the wounds. A bulky well-padded volar and dorsal fiberglass splint was applied in standard fashion. Patient was then safely extubated in the operative suite. She was transferred to her hospital bed and subsequently to PACU in stable condition. Postoperative plan: Patient be nonweightbearing the right hand and wrist. She will follow-up with me in the office in 1 week for wound check and splint removal as well as x-rays. We may consider transition to a Velcro wrist brace at that point. Ice and elevation encouraged. Range of motion of the fingers encouraged. Narcotic pain prescription provided in the office today. Okay to take ibuprofen. Continue home aspirin.
[2021-01-27 20:16] LABS: Bedside Glucose 117 mg/dL (70-110)
--- NOTE | 2021-01-27 20:51 | SUR.PHASEII ---
Patient arrived in PACU and was very disoriented. Unable to follow commands. Continually trying to get out of bed. After being observed for 1.5hrs with verbal and physical redirection, patient was able to reorient and is now a&o x3. at bedside. Patient denies trouble with anesthesia in the past. VSS. Void x 1 incontinent episode.
--- NOTE | 2021-01-27 21:15 | SUR.PHASEII ---
void in rr
== END 2021-01-27 21:15 | disposition home or self-care (01) ==
LOC: SDC 12:22 → AC 13:36
PROVIDERS: PCP Student in an Organized Health Care Education/Training Program; Referring Provider Student in an Organized Health Care Education/Training Program; Visit Provider Student in an Organized Health Care Education/Training Program
PROC: (CPT 25515; principal; 2021-01-27 14:45)
DX: S52.551B Other extraarticular fracture of lower end of right radius, initial encounter for open fracture type I or II (principal); W54.0XXA Bitten by dog, initial encounter; Y93.9 Activity, unspecified; Y92.9 Unspecified place or not applicable; Y99.9 Unspecified external cause status; S52.301A Unspecified fracture of shaft of right radius, initial encounter for closed fracture; M96.89 Other intraoperative and postprocedural complications and disorders of the musculoskeletal system; Y65.8 Other specified misadventures during surgical and medical care; Y92.234 Operating room of hospital as the place of occurrence of the external cause; E11.9 Type 2 diabetes mellitus without complications; I10 Essential (primary) hypertension; E78.00 Pure hypercholesterolemia, unspecified; M10.9 Gout, unspecified; M19.90 Unspecified osteoarthritis, unspecified site; Z78.0 Asymptomatic menopausal state; Z79.82 Long term (current) use of aspirin; Z79.4 Long term (current) use of insulin; Z79.899 Other long term (current) drug therapy; Z87.891 Personal history of nicotine dependence
CPT/HCPCS: 01830; 25515; 25607; 64417; 73110; 76000; 80048; 82962; 83036; 85025; 93005; C1713; J7120; J2405

== ENCOUNTER → 2022-10-30 | Outpatient (CLI) | payer MEDICARE, OTHER, SELFPAY | END | disposition home or self-care (01) | LOC: SL 20:14 | PROVIDERS: PCP Student in an Organized Health Care Education/Training Program; Referring Provider Student in an Organized Health Care Education/Training Program; Visit Provider Student in an Organized Health Care Education/Training Program | DX: G47.10 Hypersomnia, unspecified (principal); G47.30 Sleep apnea, unspecified | CPT/HCPCS: 95810 ==

== ENCOUNTER → 2022-12-19 | Outpatient (CLI) | payer MEDICARE, OTHER, SELFPAY | END | disposition home or self-care (01) | LOC: SL 10:01 | PROVIDERS: PCP Student in an Organized Health Care Education/Training Program; Referring Provider Student in an Organized Health Care Education/Training Program; Visit Provider Student in an Organized Health Care Education/Training Program | DX: G47.33 Obstructive sleep apnea (adult) (pediatric) (principal) | CPT/HCPCS: 95811 ==

== ENCOUNTER 2024-02-17 11:12 | Emergency (ER) | payer MEDICARE, OTHER, SELFPAY ==
[2024-02-17 11:13] VITALS: BP 173/76; PULSE 57; RESP 18; TEMP 35.9; O2SAT 99
[2024-02-17 11:23] VITALS: BMI 27.1
--- NOTE | 2024-02-17 11:36 | EDS_ITS ---
HPI History of Present Illness Chief Complaint: Dizziness Informant: patient and spouse/S.O. Narrative Narrative: 78-year-old female presenting to the emergency room with the chief complaint of vertigo and headache. Patient states that she spent last night in [place]. At 5:00 this morning she sat up in bed to go to the bathroom the before even getting out of bed she immediately sensed a sensation that she was off balance. No sensation that the room is spinning. She states that whenever she goes to move or close her eyes she feels like she is going to fall over. She states that she is disorientated. When asked what he means by disorientated she means off balance. She states that she has a headache in the front middle of her forehead that goes to the sides and goes backwards. She has not taken any Tylenol Motrin or anything for the headache other than her normal daily medications because she wanted to see what was going on before I did that. She drove from [place] to [place] and went to urgent care. Urgent care noted that she was hypertensive and sent her to the emergency department. Patient denies any speech or vision changes. She denies any arm or leg symptoms such as weakness or sensory changes. She states that maybe a month ago she had a 15- minute episode of similar symptoms but it resolved on its own. [facility] Medical History Wears glasses Post-menopausal Alcohol use Diabetes Gout Arthritis High cholesterol Easy bruising Former smoker Shortness of breath on exertion Hypertension Home Medications ?Medication ?Instructions ?Recorded ?Last Taken ?Type allopurinol 300 mg tablet 300 mg PO DAILY gout 10/28/18 Unknown History aspirin 81 mg tablet,delayed 81 mg PO DAILY heart health 10/28/18 02/28/21 History release cetirizine 10 mg tablet 10 mg PO DAILY allergies 10/28/18 Unknown History doxycycline monohydrate 100 mg 50 mg PO BID rosecea 10/28/18 Unknown History capsule glimepiride 4 mg tablet 2 mg PO DAILY diabetes 10/28/18 Unknown History hydrochlorothiazide 25 mg tablet 25 mg PO DAILY htn 10/28/18 Unknown History metformin 850 mg tablet 850 mg PO DAILY diabetes 10/28/18 Unknown History metoprolol succinate 25 mg 100 mg PO DAILY htn 10/28/18 03/03/21 06:00 History tablet,extended release 24 hr sbkzyole-lze-zlqao acid 0.4 1 ea PO DAILY supplement 10/28/18 Unknown History mg-lycopene 300 mcg-lutein 250 mcg tablet simvastatin 20 mg tablet 20 mg PO QHS cholesterol 10/28/18 Unknown History sitagliptin phosphate 100 mg 100 mg PO DAILY diabetes 10/28/18 Unknown History tablet (Januvia) insulin glargine 100 unit/mL (3 18 unit subcut .BEDTIME 12/20/18 Unknown History mL) subcutaneous pen calcium 500 mg (as 1 tab PO BID 02/17/24 Unknown History carbonate)-vitamin D3 3.125 mcg (125 unit) tablet cholecalciferol (vitamin D3) 125 125 mcg PO DAILY 02/17/24 Unknown History mcg (5,000 unit) tablet (Vitamin D3) clonidine HCl 0.1 mg tablet 0.1 mg PO Q4H PRN hypertensive 02/17/24 Unknown Rx emergency 48 hours #10 tabs ibuprofen 400 mg tablet 800 mg PO Q4H PRN PRN Pain Score 02/17/24 Unknown History 1-07/19 lisinopril 40 mg tablet 40 mg PO DAILY 02/17/24 Unknown History naproxen 500 mg tablet 500 mg PO DAILY PRN pain 02/17/24 Unknown History Allergy/AdvReac Type Severity Reaction Status Date / Time Penicillins (PCN) Allergy Rash Verified 02/17/24 11:13 Seasonal Allergies: Uncoded Allergy NEEDS Verified 02/17/24 11:13 (environmental) FOLLOW-UP Surgical History History of incision and drainage History of colonoscopy History of hernia repair Social History Smoking Status: Former smoker ROS ROS ED Constitutional Constitutional ED: Denies chills, fever(s) or weight loss Eyes Eyes: Denies change in vision or diplopia ENT ENT ED: Denies ear pain, rhinorrhea or sore throat Cardiovascular Cardiovascular: Denies chest pain, orthopnea, palpitations or racing heartbeat Respiratory/Chest Respiratory/Chest: Denies cough, dyspnea or orthopnea Gastrointestinal Gastrointestinal: Denies abdominal pain, diarrhea, nausea or vomiting Genitourinary Genitourinary ED: Denies dysuria, hematuria or urinary frequency Musculoskeletal Musculoskeletal: Denies arthralgias or myalgias Integumentary Denies abscess or rash Neurologic Neurologic: Reports headache(s) and other Details: Off-balance feeling ; Denies paresthesias or weakness Psychiatric Psychiatric: Denies anxiety, depression, suicidal ideation or suicidal thoughts Endocrine Endocrinology: Denies polydipsia, polyphagia or polyuria Allergic/Immunologic Allergic/Immunologic ED: Denies mouth swelling, tongue swelling or urticaria EXAM Physical Exam Const Vital Signs: 02/17/24 11:13 02/17/24 12:36 02/17/24 14:00 Temperature 96.6 F L Temperature Source Temporal Pulse Rate 57 L 55 L 56 L Respiratory Rate 18 15 18 Blood Pressure 173/76 H 195/76 H 204/108 H Blood Pressure Mean 108 115 140 Pulse Ox 99 97 97 Oxygen Delivery Method Room Air Room Air Room Air 02/17/24 15:35 Temperature Temperature Source Pulse Rate 55 L Respiratory Rate 19 H Blood Pressure 169/73 H Blood Pressure Mean 105 Pulse Ox 98 Oxygen Delivery Method Room Air Positive well nourished and well developed General Appearance ED: well developed HEENT Reports normocephalic, head/scalp atraumatic and moist mucous membranes Eyes PERRL and EOMs intact bilaterally Neck no lymphadenopathy, supple and no JVD Resp normal respiratory effort and clear to auscultation bilaterally Cardio regular rate, regular rhythm and no murmurs GI normal to inspection, nondistended, normoactive bowel sounds and non-tender Palpation: soft Back/Spine no CVA tenderness and normal ROM Extremity normal to inspection General Extremety ED: Negative for edema General Extremity: Negative for edema Neuro oriented x3 and CN's II-XII intact bilaterally Sensorium / Orientation: alert Motor Exam: strength 5/5 throughout Psych mental status grossly normal Mood & Affect: Negative for depressed or tearful Skin no rashes or lesions noted and no wounds MDM MDM MDM Narrative Medical decision making narrative: Differential diagnosis includes but not limited to vertigo hypertensive urgency/emergency stroke (hemorrhagic ischemia) intracranial hemorrhage press dehydration Basic blood work obtained essentially negative. Urinalysis with no overt infection. 5-10 white cells noted 2+ bacteria 0-5 squamous cells negative nitrates. She is asymptomatic from that standpoint using shared decision making we do not feel the patient needs to be treated at this time. CTA of the head and neck was obtained essentially negative. Patient continues to be hypertensive. She received Toradol for headache and meclizine. Also gave her a dose of clonidine and she has had multiple blood pressure readings greater than 200. Blood pressure came down patient is overall feeling better. We ambulated her. History & Record Review Discussion w/independent historian: Patient and Significant other Lab Data Attestation: I reviewed the patient's lab results. Labs: Laboratory Results - last 24 hr 02/17/24 02/17/24 11:24 11:46 WBC 10.1 RBC 4.88 Hgb 15.0 Hct 46.0 MCV 94.3 MCH 30.7 MCHC 32.6 RDW Std Deviation 47.2 H RDW Coeff of Rusty 13.6 Plt Count 217 MPV 11.4 Immature Gran % (Auto) 0.600 Neut % (Auto) 67.7 Lymph % (Auto) 21.6 [place] % (Auto) 6.7 Eos % (Auto) 2.5 Baso % (Auto) 0.9 Absolute Neuts (auto) 6.9 Absolute Lymphs (auto) 2.19 Nucleated RBC % 0 Sodium 137 Potassium 3.7 Chloride 99 Carbon Dioxide 33.0 H Anion Gap 5 BUN 20 H Creatinine 0.95 Estim Creat Clear Calc 49.31 Est GFR (MDRD) Af Amer 73 Est GFR (MDRD) Non-Af 60 BUN/Creatinine Ratio 21.1 H Glucose 178 H Calcium 10.3 H Urine Color Straw Urine Clarity Clear Urine pH 7.0 Ur Specific [place] 1.010 Urine Protein Negative Urine Glucose (UA) Normal Urine Ketones Negative Urine Occult Blood Negative Urine Nitrite Negative Urine Bilirubin Negative Urine Urobilinogen Normal Ur Leukocyte Esterase 25 H Urine RBC 0 SEEN Urine WBC 5-10 SEEN Ur Squamous Epith Cells 0-5 SEEN Urine Bacteria 2+ Urine Mucus 0 SEEN Radiography Diagnostic Testing: Clinical Impression(s) from Imaging Studies Head/Neck CTA 02/17/24 11:38 IMPRESSION: No intracranial vaso-occlusive disease or significant stenosis. No demonstrated aneurysm or vascular malformation Minimal calcified atherosclerotic plaque in both proximal ICAs without significant stenosis Electronically Signed: Brock Miranda MD at 13:29 EST , Discharge Plan Triage Chief Complaint: Dizziness Other Complaint: Headache ED Provider: Williams Hardin Dx/Rx/DC Orders Clinical Impression: Hypertension, Ataxia, Headache Instructions: ED High Blood Pressure Hypertension Prescriptions: New clonidine HCl 0.1 mg tablet 0.1 mg PO Q4H PRN (Reason: hypertensive emergency) 2 Days Qty: 10 0RF Rx Instructions: for systolic blood pressure >160 mmhg No Action cetirizine 10 MG tablet 10 mg PO DAILY metformin 850 MG tablet 850 mg PO DAILY aspirin 81 MG tablet,delayed release (DR/EC) 81 mg PO DAILY Patient Comments: instructed ti stop [address] armenta doxycycline monohydrate 100 MG capsule 50 mg PO BID simvastatin 20 MG tablet 20 mg PO QHS glimepiride 4 MG tablet 2 mg PO DAILY Rx Instructions: 1/2 TABLET EVERY MORNING. 1 TABLET WITH SUPPER allopurinol 300 MG tablet 300 mg PO DAILY hydrochlorothiazide 25 MG tablet 25 mg PO DAILY metoprolol succinate 25 MG tablet extended release 24 hr 100 mg PO DAILY gceecvfw-ush-BO-lycopen-lutein 1 EACH tablet 1 ea PO DAILY Januvia 100 MG tablet 100 mg PO DAILY insulin glargine 100 UNIT/ML insulin pen 18 unit subcut .BEDTIME naproxen 500 mg tablet 500 mg PO DAILY PRN (Reason: pain) lisinopril 40 mg tablet 40 mg PO DAILY calcium carbonate-vitamin D3 500 mg-3.125 mcg (125 unit) tablet 1 tab PO BID cholecalciferol (vitamin D3) [Vitamin D3] 125 mcg (5,000 unit) tablet 125 mcg PO DAILY ibuprofen 400 MG tablet 800 mg PO Q4H PRN PRN (Reason: Pain Score 1-5/10) Primary Care Provider: Nakul Mcclellan Referrals: Nakul Mcclellan DO [Primary Care Provider] - 3-5 Days Print Language: [place] NIHSS NIHSS 1a. Level of Consciousness: Alert; keenly responsive 1b. LOC Questions: Answers BOTH questions correctly. 1c. LOC Commands: Performs both tasks correctly. 2. Best Gaze: Normal 3. Visual: No visual loss 4. Facial Palsy: Normal symmetrical movements 5a. Left Arm: No drift; arm holds 90 (or 45) degrees for full 10 seconds 5b. Right Arm: No drift; arm holds 90 (or 45) degrees for full 10 seconds 6a. Left Leg: No drift; leg holds 30-degree position for full 5 seconds 6b. Right Leg: No drift; leg holds 30-degree position for full 5 seconds 7. Limb Ataxia: Absent 8. Sensory: Normal; no sensory loss 9. Best Language: No aphasia; normal 10. Dysarthria: Normal 11. Extinction and Inattention: No abnormality Total: 0
--- NOTE | 2024-02-17 11:38 | CT_ITS ---
STUDY: CTA HEAD AND NECK WITH CONTRAST REASON FOR EXAM: Female, 78 years old. Headache/ataxia RADIATION DOSAGE (If Supplied By Facility): CTDIvol = ( ) mGy, DLP = ( 1525.07 ) mGycm TECHNIQUE: CT angiography was performed with a multi-detector CT scanner. Data acquisition was obtained from the skull base through the vertex following intravenous administration of IV 100mL [id number]-[id number]. MIP images were reconstructed from the axial data set. Post-processing of the angiographic images was performed, with multiplanar reformation and 3D reconstruction. Individualized dose optimization techniques were used for this CT. COMPARISON: No relevant priors. FINDINGS: Normal bilateral petrous carotid arteries. Normal right cavernous carotid artery with a normal supraclinoid bifurcation. Normal left cavernous carotid artery with a normal supraclinoid bifurcation. Normal right A1 segments of the anterior cerebral artery. Normal left A1 segments of the anterior cerebral artery. Normal intact anterior communicating artery (ACOM). Normal bilateral A2 segments of the anterior cerebral arteries. Normal right M1 and M2 segments of the middle cerebral arteries, with a normal M1 bifurcation. Normal left M1 and M2 segments of the middle cerebral arteries, with a normal M1 bifurcation. Normal right posterior communicating artery (PCOM). Normal left posterior communicating artery (PCOM). Normal bilateral vertebral arteries. Normal basilar artery with a normal basilar bifurcation. The visualized bilateral superior cerebellar (SCA) arteries are normal. Normal bilateral P1, P2 and visualized P3 segments of the posterior cerebral arteries. There is no demonstrated aneurysm of the [place]. No demonstrated aneurysm or vascular malformation AORTIC ARCH: Normal visualized aortic arch. Normal origins of the brachiocephalic, left common carotid, and left subclavian arteries. RIGHT CAROTID ARTERIES: Normal right common carotid artery (CCA). Normal right common carotid bulb. There is mild atherosclerotic plaque formation of the origin of the right internal carotid artery with less than 50% cross sectional diameter stenosis. Normal visualized cervical portion of the right internal carotid artery. Normal origin of the right external carotid artery (ECA). LEFT CAROTID ARTERIES: Normal left common carotid artery (CCA). Normal left common carotid bulb. There is mild atherosclerotic plaque formation of the origin of the left internal carotid artery with less than 50% cross sectional diameter stenosis. Normal visualized cervical portion of the left internal carotid artery. Normal origin of the left external carotid artery (ECA). VERTEBRAL ARTERIES: Normal bilateral vertebral arteries. No suspicious enhancing lesion, airway narrowing or deviation. Degenerative changes noted throughout the cervical spine. CT/CTA Head AND Neck W/ Contrast IMPRESSION: No intracranial vaso-occlusive disease or significant stenosis. No demonstrated aneurysm or vascular malformation Minimal calcified atherosclerotic plaque in both proximal ICAs without significant stenosis Electronically Signed: Brock Miranda MD at 13:29 EST ,
[2024-02-17 11:41] LABS: Absolute Lymphocyte Count 2.19 X10^3/uL (0.83-4.51); Absolute Neutrophil Count 6.9 X10^3/uL (2.0-7.7); Basophil# 0.09 X10^3/uL; Basophil% 0.9 % (0-1); Eosinophil# 0.25 X10^3/uL; Eosinophils% 2.5 % (0-5); Lymphocyte # 2.19 X10^3/ul (0.83-4.51); Lymphocyte % 21.6 % (19-41); Mean Corp Hgb Conc 32.6 g/dL (32-36); Mean Corpuscular Hgb 30.7 pg (27.0-32.0); Mean Corpuscular Volume 94.3 fL (81-99); Mean Platelet Vol. 11.4 fl (6.2-12.0); Monocyte# 0.68 X10^3/uL; Monocyte% 6.7 % (0-10); NRBC Flagged by Analyzer 0 % (0-5); Neutrophil # 6.87 X10^3/uL (2.7-7.7); Neutrophil % 67.7 % (47-70); Platelet Count 217 K/mm3 (150-450); RBC Distribution Width CV 13.6 % (11.6-14.6); RBC Distribution Width SD 47.2 fl (35.1-43.9); Red Blood Count 4.88 M/mm3 (4.2-5.4); White Blood Count 10.1 K/mm3 (4.4-11.0)
[2024-02-17 11:52] LABS: Mucous, Urine 0 SEEN /hpf (<or=2+); Red Blood Cells-Urine 0 SEEN /hpf (0-5)
[2024-02-17 11:53] LABS: Color, Urine Straw (Yellow); Glucose, Dipstick Normal (Normal); Ketone-Dipstick Negative (Negative); Leukocyte Esterase-Dipstick 25 /ul (Negative); Nitrite-Dipstick Negative (Negative); Occult Blood-Urine Negative /ul (Negative); Protein-Dipstick Negative (Negative); Urine Bilirubin Dipstick Negative (Negative); Urine Clarity Clear (Clear); Urine Urobilinogen Normal (Normal)
[2024-02-17 11:59] LABS: Anion Gap 5 (5-15); BUN 20 mg/dL (7-18); BUN/Creat Ratio 21.1 RATIO (10-20); Calcium,Total 10.3 mg/dL (8.5-10.1); Chloride 99 mmol/L (98-107); Creatinine, Serum 0.95 mg/dL (0.55-1.02); EST Glomerular Filtration Rate 60 mL/min (>60); Est Glom Filt Rate - Afr Amer 73 mL/min (>60); Estimated Creatinine Clearance 49.31 ml/min; Glucose 178 mg/dL (74-106); Potassium 3.7 mmol/L (3.5-5.1); Sodium Level 137 mmol/L (136-145)
[2024-02-17 12:01] LABS: Bacteria 2+ /hpf (None Seen); Squamous Epithelial Cells - UA 0-5 SEEN /hpf (5-10); White Blood Cells 5-10 SEEN /hpf (0-5)
[2024-02-17 12:36] VITALS: BP 195/76; PULSE 55; RESP 15; O2SAT 97
[2024-02-17] MEDS: Meclizine HCl 25 MG Tablet PO (13:59)
[2024-02-17] MEDS: Ketorolac 15 MG/ML Vial IV (13:59)
[2024-02-17 14:00] VITALS: BP 204/108; PULSE 56; RESP 18; O2SAT 97
[2024-02-17] MEDS: cloNIDine HCl 0.1 MG Tablet PO (14:44)
[2024-02-17 15:35] VITALS: BP 169/73; PULSE 55; RESP 19; O2SAT 98
[2024-02-17 16:11] VITALS: BP 164/75; PULSE 52; RESP 18; TEMP 36.8; O2SAT 98
== END 2024-02-17 16:20 | disposition home or self-care (01) ==
PROVIDERS: Emergency Provider Emergency Medicine; PCP Student in an Organized Health Care Education/Training Program; Visit Provider Emergency Medicine
DX: I10 Essential (primary) hypertension (principal); E11.9 Type 2 diabetes mellitus without complications; Z79.4 Long term (current) use of insulin; R27.0 Ataxia, unspecified; R51.9 Headache, unspecified; E78.00 Pure hypercholesterolemia, unspecified; Z79.82 Long term (current) use of aspirin; Z79.84 Long term (current) use of oral hypoglycemic drugs; Z79.899 Other long term (current) drug therapy; Z87.891 Personal history of nicotine dependence
CPT/HCPCS: 70496; 70498; 80048; 81001; 85025; 96374; 99284; Q9967; A4216

== ENCOUNTER 2024-02-18 22:40 | Emergency (ER) | payer MEDICARE, OTHER, SELFPAY ==
[2024-02-18 22:48] VITALS: BP 116/47; PULSE 65; RESP 18; TEMP 36.8; O2SAT 94
[2024-02-18 23:39] VITALS: BP 85/44
[2024-02-18 23:50] VITALS: BP 92/59
[2024-02-19 00:33] VITALS: BP 94/53
[2024-02-19 01:00] VITALS: BP 93/69
[2024-02-19 02:00] VITALS: BP 124/65
--- NOTE | 2024-02-19 02:18 | EX.ED.DYSGE1 ---
HPI History of Present Illness Chief Complaint: Hypertension Informant: patient Onset/Context/Timing Onset: Today and Yesterday Context: Gradual Onset Timing: Intermittent Current Severity: Mild Maximum Severity: Mild Narrative Narrative: 78-year-old female history of hypertension on lisinopril metoprolol. She also has a history of diabetes. Was seen yesterday for symptoms of acute on chronic hypertension and vertigo. Had negative labs and a CTA of her head and neck and was negative. She was treated with blood pressure medicine clonidine her pressure improved she was discharged home. Today she had also had elevated blood pressure. Denies any strokelike symptoms otherwise. At times she does get mildly dizzy with movement of her head. Prior similar symptoms: Yes Recent Illness/Hospitalization: No PFSH [facility] Medical History Wears glasses Post-menopausal Alcohol use Diabetes Gout Arthritis High cholesterol Easy bruising Former smoker Shortness of breath on exertion Hypertension Home Medications ?Medication ?Instructions ?Recorded ?Last Taken ?Type allopurinol 300 mg tablet 300 mg PO DAILY gout 10/28/18 Unknown History aspirin 81 mg tablet,delayed 81 mg PO DAILY heart health 10/28/18 02/28/21 History release cetirizine 10 mg tablet 10 mg PO DAILY allergies 10/28/18 Unknown History doxycycline monohydrate 100 mg 50 mg PO BID rosecea 10/28/18 Unknown History capsule glimepiride 4 mg tablet 2 mg PO DAILY diabetes 10/28/18 Unknown History hydrochlorothiazide 25 mg tablet 25 mg PO DAILY htn 10/28/18 Unknown History metformin 850 mg tablet 850 mg PO DAILY diabetes 10/28/18 Unknown History metoprolol succinate 25 mg 100 mg PO DAILY htn 10/28/18 03/03/21 06:00 History tablet,extended release 24 hr [id number]-fij-ferfa acid 0.4 1 ea PO DAILY supplement 10/28/18 Unknown History mg-lycopene 300 mcg-lutein 250 mcg tablet simvastatin 20 mg tablet 20 mg PO QHS cholesterol 10/28/18 Unknown History sitagliptin phosphate 100 mg 100 mg PO DAILY diabetes 10/28/18 Unknown History tablet (Januvia) insulin glargine 100 unit/mL (3 18 unit subcut .BEDTIME 12/20/18 Unknown History mL) subcutaneous pen calcium 500 mg (as 1 tab PO BID 02/17/24 Unknown History carbonate)-vitamin D3 3.125 mcg (125 unit) tablet cholecalciferol (vitamin D3) 125 125 mcg PO DAILY 02/17/24 Unknown History mcg (5,000 unit) tablet (Vitamin D3) clonidine HCl 0.1 mg tablet 0.1 mg PO Q4H PRN hypertensive 02/17/24 Unknown Rx emergency 48 hours #10 tabs ibuprofen 400 mg tablet 800 mg PO Q4H PRN PRN Pain Score 02/17/24 Unknown History 1-5 lisinopril 40 mg tablet 40 mg PO DAILY 02/17/24 Unknown History naproxen 500 mg tablet 500 mg PO DAILY PRN pain 02/17/24 Unknown History meclizine 25 mg chewable tablet 25 mg PO TID Vertigo #14 tabs 02/19/24 Unknown Rx (Antivert) Allergy/AdvReac Type Severity Reaction Status Date / Time Penicillins (PCN) Allergy Rash Verified 02/18/24 22:48 Seasonal Allergies: Uncoded Allergy NEEDS Verified 02/18/24 22:48 (environmental) FOLLOW-UP Surgical History History of incision and drainage History of colonoscopy History of hernia repair Social History Smoking Status: Former smoker ROS ROS ED ROS Narrative Dizziness. Constitutional Constitutional ED: Denies chills or fever(s) Eyes Eyes: Denies blurry vision ENT ENT ED: Denies ear pain Cardiovascular Cardiovascular: Denies chest pain Respiratory/Chest Respiratory/Chest: Denies cough or dyspnea Gastrointestinal Gastrointestinal: Denies abdominal pain Genitourinary Genitourinary ED: Denies dysuria Musculoskeletal Musculoskeletal: Denies arthralgias Integumentary Denies abscess Neurologic Neurologic: Denies headache(s), paresthesias or weakness Psychiatric Psychiatric: Denies anxiety or depression Endocrine Endocrinology: Denies cold intolerance Hematologic/Lymphatic Hematologic/Lymphatic: Reports none Allergic/Immunologic Allergic/Immunologic ED: Denies mouth swelling, tongue swelling or urticaria EXAM Physical Exam Narrative Exam Narrative: 78-year-old female no acute distress sitting upright in bed. Vital signs are stable afebrile. Her most recent blood pressure 124/65. He does not look septic toxic or any distress. at bedside. H EENT exam pupils round reactive light. No droop. Normal speech. Neck nontender no lymphadenopathy. Lungs clear to auscultation bilateral. Heart regular rate and rhythm rate about 65 no murmur. Lungs clear to auscultation bilaterally. Heart regular rate and rhythm no murmur. Chest wall and ribs nontender. Abdomen soft nontender. Moving all 4 extremities. 5 out of 5 laboratory asst strength. Dorsi plantarflexion intact. Neurologically she is awake and alert no focal motor deficits. Negative Hallpike maneuver. Fingertip to nose [id number] within normal limits. NIH 0. Answering questions and following commands. Const Vital Signs: 02/18/24 22:48 02/18/24 23:39 02/18/24 23:50 Temperature 98.2 F Temperature Source Oral Pulse Rate 65 Respiratory Rate 18 Respiratory Pattern Blood Pressure 116/47 L 85/44 L 92/59 L Blood Pressure Mean 70 57 70 Pulse Ox 94 Oxygen Delivery Method Room Air 02/18/24 23:50 02/19/24 00:33 02/19/24 01:00 Temperature Temperature Source Pulse Rate Respiratory Rate Respiratory Pattern Normal Blood Pressure 94/53 L 93/69 Blood Pressure Mean 66 77 Pulse Ox Oxygen Delivery Method 02/19/24 02:00 Temperature Temperature Source Pulse Rate Respiratory Rate Respiratory Pattern Blood Pressure 124/65 H Blood Pressure Mean 84 Pulse Ox Oxygen Delivery Method Positive well nourished and well developed; Negative for cachectic, contractures or unkempt General Appearance ED: well developed and NAD; Negative for unkempt, cachectic, contractures, cyanotic, diaphoretic or pallor Nutritional Appearance: Negative for cachectic HEENT Reports moist mucous membranes Negative for trauma or tenderness Eyes PERRL and EOMs intact bilaterally General Eye ED: Negative for pale conjunctiva or scleral icterus Neck no lymphadenopathy, supple and no JVD General: Negative for tenderness Lymph Lymphatic: Negative for other Chest Wall inspection of chest normal and palpation of chest normal Resp normal respiratory effort and clear to auscultation bilaterally Effort and Inspection: Negative for retractions Auscultation: Negative for rales, rhonchi or wheezes Cardio regular rate, regular rhythm, S1 normal heart sound, S2 normal heart sound and no murmurs GI normal to inspection, nondistended, normoactive bowel sounds, non-tender, non-distended and no masses Palpation: soft; Negative for tender, guarding or rebound tenderness present Back/Spine no CVA tenderness Extremity normal to inspection General Extremety ED: Negative for edema or tenderness General Extremity: Negative for edema Neuro oriented x3 and CN's II-XII intact bilaterally Sensorium / Orientation: alert; Negative for orientation impaired, lethargic or stuporous Motor Exam: strength 5/5 throughout Psych mental status grossly normal Appearance: Negative for unkempt Attitude: No agitated Mood & Affect: Negative for depressed, anxious or tearful Skin no rashes or lesions noted and no wounds General Skin Exam: Negative for jaundice or pallor Lesions: No lesion noted Rashes: No rashes noted Trauma: Negative for abrasion Wounds: Negative for wounds noted MDM MDM MDM Narrative Medical decision making narrative: 78-year-old female with acute on chronic hypertension and has good blood pressures here. She has medications at home she is using lisinopril metoprolol and given prescription for clonidine yesterday. Her neurologic exam today is normal. Her NIH is 0. She had a CTA head and neck yesterday that was negative. Nurses ambulated her around 2:20 AM without any difficulty. She uses a walker at home and she ambulated here without a walker without any significant difficulty. No significant ataxia. Patient and her are comfortable being discharged home with outpatient follow-up. Continue her blood pressure medications. History & Record Review Discussion w/independent historian: Patient and Family Additional record(s) reviewed:: Prior inpatient record, Prior outpatient record, Prior ED visit and Prior labs Lab Data Attestation: I reviewed the patient's lab results. Lab results narrative: I reviewed the patient's labs and CAT scan from yesterday. Discharge Plan Triage Chief Complaint: Hypertension ED Provider: Dexter Gaspar Dx/Rx/DC Orders Clinical Impression: Hypertension, Vertigo Instructions: Vertigo Inner Ear Problems Prescriptions: New meclizine [Antivert] 25 mg tablet,chewable 25 mg PO TID Qty: 14 0RF No Action cetirizine 10 MG tablet 10 mg PO DAILY metformin 850 MG tablet 850 mg PO DAILY aspirin 81 MG tablet,delayed release (DR/EC) 81 mg PO DAILY Patient Comments: instructed ti stop [address] armenta doxycycline monohydrate 100 MG capsule 50 mg PO BID simvastatin 20 MG tablet 20 mg PO QHS glimepiride 4 MG tablet 2 mg PO DAILY Rx Instructions: 1/2 TABLET EVERY MORNING. 1 TABLET WITH SUPPER allopurinol 300 MG tablet 300 mg PO DAILY hydrochlorothiazide 25 MG tablet 25 mg PO DAILY metoprolol succinate 25 MG tablet extended release 24 hr 100 mg PO DAILY rcsgildi-hoo-YV-lycopen-lutein 1 EACH tablet 1 ea PO DAILY Januvia 100 MG tablet 100 mg PO DAILY insulin glargine 100 UNIT/ML insulin pen 18 unit subcut .BEDTIME naproxen 500 mg tablet 500 mg PO DAILY PRN (Reason: pain) lisinopril 40 mg tablet 40 mg PO DAILY calcium carbonate-vitamin D3 500 mg-3.125 mcg (125 unit) tablet 1 tab PO BID cholecalciferol (vitamin D3) [Vitamin D3] 125 mcg (5,000 unit) tablet 125 mcg PO DAILY ibuprofen 400 MG tablet 800 mg PO Q4H PRN PRN (Reason: Pain Score 1-5/10) clonidine HCl 0.1 mg tablet 0.1 mg PO Q4H PRN (Reason: hypertensive emergency) 2 Days Qty: 10 0RF Rx Instructions: for systolic blood pressure >160 mmhg Primary Care Provider: Nakul Mcclellan Referrals: Nakul Mcclellan, [Primary Care Provider] - 3-5 Days if not improving Activity Restrictions/Additional Instructions: Use the meclizine which is also called Antivert for your dizziness. You can take it up to 3 times a day. You do not have to use it at all if you not having dizziness. This should progressively improve it does not need to follow-up with your doctor for further evaluation. If it gets significantly worse return. Your labs and CAT scan yesterday look good. Print Language: Greenlandic Disposition Disposition: Home, Self Care
[2024-02-19 02:26] VITALS: BP 129/65; PULSE 77; RESP 18; TEMP 36.6; O2SAT 98
== END 2024-02-19 02:49 | disposition home or self-care (01) ==
LOC: ED 02-19 02:33
PROVIDERS: Emergency Provider Emergency Medicine; PCP Student in an Organized Health Care Education/Training Program; Visit Provider Emergency Medicine
DX: I10 Essential (primary) hypertension (principal); E11.9 Type 2 diabetes mellitus without complications; Z79.4 Long term (current) use of insulin; R42 Dizziness and giddiness; E78.00 Pure hypercholesterolemia, unspecified; Z79.82 Long term (current) use of aspirin; Z79.84 Long term (current) use of oral hypoglycemic drugs; Z79.899 Other long term (current) drug therapy; Z87.891 Personal history of nicotine dependence
CPT/HCPCS: 99282

== ENCOUNTER → 2024-04-25 | Outpatient (CLI) | payer MEDICARE, OTHER, SELFPAY ==
--- NOTE | 2024-04-25 10:57 | ECHOD_ITS ---
Reason For Study Reason For Study: HTN Procedure This was a 2D Doppler, Color Flow transthoracic echocardiogram. Exam performed in department. Left Ventricle Normal LV size. Apical false tendon noted. Mild concentric left ventricular hypertrophy. Left ventricular systolic function is normal. The left ventricular ejection fraction is 70 %. No regional wall motion abnormalities noted. Right Ventricle Normal RV size. Normal systolic function. Atria Normal left atrium. Normal right atrium. Mitral Valve Bileaflet diffuse mitral valve thickening. Tricuspid Valve Normal tricuspid valve. Aortic Valve Trisinus/trileaflet aortic valve. Mild (1+) aortic valve insufficiency. Pulmonic Valve Normal pulmonic valve. Great Vessels Normal aortic root. The pulmonary artery is normal size. Inferior vena cava collapse with respiration. Pericardium/Pleural No pericardial effusion. MMode/2D Measurements & Calculations LVIDd: 3.6 cm IVSd: 1.2 cm LVOT diam: 1.8 cm LVIDs: 2.3 cm LVPWd: 1.3 cm LVOT area: 2.6 cm2 FS: 37.9 % LAV(MOD-bp): 35.1 ml LVAd ap4: 24.9 cm2 SV(MOD-sp4): 49.2 ml LAV(MOD-bp) Indexed: 19.4 ml/m2 LVLd ap4: 7.5 cm SI(MOD-sp4): 27.2 ml/m2 LAV(MOD-sp2): 40.0 ml EDV(MOD-sp4): 66.8 ml LAV(MOD-sp4): 22.7 ml EDV(sp4-el): 70.0 ml LVAs ap4: 11.2 cm2 LVLs ap4: 6.2 cm ESV(MOD-sp4): 17.6 ml ESV(sp4-el): 17.0 ml EF(MOD-sp4): 73.7 % EF(sp4-el): 75.7 % SV(sp4-el): 53.0 ml LA A4 area: 10.2 cm2 LA dimension(2D): 2.7 cm RA A4 area: 10.5 cm2 Time Measurements MV dec time: 0.40 sec Doppler Measurements & Calculations MV E max binh: 58.6 cm/sec Lat Peak E' Binh: 4.6 cm/sec Med Peak E' Binh: 6.0 cm/sec MV A max binh: 82.3 cm/sec E/E' lat: 12.7 E/E' med: 9.7 MV E/A: 0.71 MV V2 max: 91.9 cm/sec Ao V2 max: 114.6 cm/sec MV max P.4 mmHg MV dec slope: 146.1 cm/sec2 Ao max P.3 mmHg MV V2 mean: 43.7 cm/sec Ao V2 mean: 77.7 cm/sec MV mean P.96 mmHg Ao mean P.8 mmHg MV V2 VTI: 28.9 cm Ao V2 VTI: 26.8 cm AV (velocity ratio): 0.90 MVA(VTI): 2.1 cm2 JAY(I,D): 2.3 cm2 JAY(V,D): 2.3 cm2 LV V1 max: 101.3 cm/sec SV(LVOT): 61.6 ml LV V1 max P.1 mmHg LV V1 mean P.4 mmHg LV V1 mean: 73.2 cm/sec LV V1 VTI: 24.0 cm ECHO/Echo Complete Interpretation Summary Normal LV size. Left ventricular systolic function is normal. The left ventricular ejection fraction is 70 %. Apical false tendon noted. Mild concentric left ventricular hypertrophy. Ordering Physician: Roque Johnson Referring Physician: Roque Johnson Performed By: Nataly Mack RCS
== END | disposition home or self-care (01) ==
LOC: CVS 10:55
PROVIDERS: PCP Student in an Organized Health Care Education/Training Program; Referring Provider Internal Medicine Cardiovascular Disease; Visit Provider Internal Medicine Cardiovascular Disease
DX: I10 Essential (primary) hypertension (principal); R06.02 Shortness of breath; R94.31 Abnormal electrocardiogram [ECG] [EKG]; R07.9 Chest pain, unspecified
CPT/HCPCS: 93306